=== PATIENT | female | born 1955 | race Caucasian/White ===

== ENCOUNTER 2023-10-12 16:05 | Inpatient (IN) ==
[2023-10-12 16:32] LABS: ABS Basophils 0.1 10^3/uL (0.0-0.1); ABS Lymphocytes 1.5 10^3/uL (1.0-4.8); ABS Neutrophils 9.5 10^3/uL (1.5-7.6); ABS Nucleated RBC 0.01 10^3/ul; Eosinophil % 0.3 %; Hematocrit 29.1 % (35-45); Hemoglobin 10.2 g/dL (11.5-14.3); Lymphocyte % 12.6 %; Mean Corpuscular Hemoglobin 30.2 pg (27-33); Mean Corpuscular Hgb Conc 34.9 g/dL (31-36); Mean Corpuscular Volume 86.5 fL (80-97); Mean Platelet Volume 8.5 fL (7.5-11.2); Platelet Count 200 10^3/uL (150-450); Red Blood Count 3.37 10^6/uL (3.63-4.92); Red Cell Distribution Width 16.4 % (12-17); White Blood Count 12.1 10^3/uL (3.8-11.8)
[2023-10-12 16:39] LABS: INR 1.25 (0.83-1.13)
[2023-10-12 17:17] LABS: Albumin 3.8 g/dL (3.2-5.2); Albumin/Globulin Ratio 1.5 (1-3); Calcium 6.9 mg/dL (8.6-10.3); Creatinine, Serum 2.27 mg/dL (0.51-0.95); Globulin 2.6 g/dL (2-4); Potassium 2.3 mmol/L (3.5-5.0); Total Bilirubin 0.8 mg/dL (0.2-1.0); Total Protein 6.4 g/dL (6.4-8.9); eGFR CKD-EPI 23.2 (>60)
[2023-10-12 17:55] LABS: High Sensitivity Troponin 1 Hr 15 pg/mL (<15)
[2023-10-12] MEDS: Lactated Ringers 1000 ml BAG 1,000 ML IV ONE (18:06)
[2023-10-12] MEDS: Potassium Chlor 20 meq TAB.ER PO ONE (18:06)
[2023-10-12 18:07] LABS: Magnesium 0.8 mg/dL (1.9-2.7)
[2023-10-12] MEDS: Magnesium Sulf 4 GM/100 ML IV 4,000 MG/100 ML BAG IVPB ONE (19:20)
[2023-10-12 21:54] LABS: TSH Ultra Thyroid Stim Horm 1.15 mcIU/mL (0.34-5.60)
[2023-10-12 22:00] LABS: Ferritin 84.2 ng/mL (11-307)
[2023-10-12] MEDS: Potassium Chlor 20 meq TAB.ER PO SCH (23:14)
[2023-10-13 02:04] LABS: Creatinine, Serum 1.94 mg/dL (0.51-0.95); Potassium 2.6 mmol/L (3.5-5.0); eGFR CKD-EPI 28.1 (>60)
[2023-10-13 06:10] LABS: ABS Lymphocytes 0.8 10^3/uL (1.0-4.8); ABS Monocytes 0.6 10^3/uL (0.0-0.9); ABS Neutrophils 6.8 10^3/uL (1.5-7.6); ABS Nucleated RBC 0.01 10^3/ul; Eosinophil % 0.2 %; Hematocrit 29.9 % (35-45); Hemoglobin 10.5 g/dL (11.5-14.3); Mean Corpuscular Hemoglobin 30.4 pg (27-33); Mean Corpuscular Hgb Conc 35.1 g/dL (31-36); Mean Corpuscular Volume 86.6 fL (80-97); Mean Platelet Volume 8.8 fL (7.5-11.2); Nucleated Red Blood Cells % 0.1 %/100WBC (0.0-0.8); Platelet Count 185 10^3/uL (150-450); Red Blood Count 3.46 10^6/uL (3.63-4.92); Red Cell Distribution Width 16.3 % (12-17); White Blood Count 8.3 10^3/uL (3.8-11.8)
[2023-10-13 06:32] LABS: Calcium 6.7 mg/dL (8.6-10.3); Creatinine, Serum 2.04 mg/dL (0.51-0.95); Magnesium 1.8 mg/dL (1.9-2.7); Potassium 2.7 mmol/L (3.5-5.0); eGFR CKD-EPI 26.4 (>60)
[2023-10-13] MEDS: Magnesium Sulfate 2 gm BAG 2 GM/50 ML BAG IVPB ONE (07:29)
[2023-10-13] MEDS ORDERED: Sulfur Hexaflouride MICROSPHR 25 MG VIAL ONE (09:41)
[2023-10-13] MEDS: Sulfur Hexaflouride MICROSPHR 25 MG VIAL IV ONE (09:48)
[2023-10-13 10:00] LABS: Calcium 7.3 mg/dL (8.6-10.3); Creatinine, Serum 1.91 mg/dL (0.51-0.95); Potassium 3.1 mmol/L (3.5-5.0); eGFR CKD-EPI 28.6 (>60)
[2023-10-13] MEDS: KCL 20 MEQ/100 ML IVPREMIX 20 MEQ/100 ML BAG IV SCH (18:10)
[2023-10-13] MEDS: Ferric Gluconate IV 125 MG in Premix IV 0 ML IV PUSH ONE (18:44)
[2023-10-13] MEDS: Ferric Gluconate IV 125 MG in NS 0.9% 100 ML IVPB ONE (23:01)
[2023-10-14 06:20] LABS: ABS Lymphocytes 0.8 10^3/uL (1.0-4.8); ABS Monocytes 0.5 10^3/uL (0.0-0.9); ABS Neutrophils 4.6 10^3/uL (1.5-7.6); Eosinophil % 0.4 %; Hematocrit 28.2 % (35-45); Hemoglobin 9.8 g/dL (11.5-14.3); Lymphocyte % 13.9 %; Mean Corpuscular Hemoglobin 30.5 pg (27-33); Mean Corpuscular Hgb Conc 34.8 g/dL (31-36); Mean Corpuscular Volume 87.9 fL (80-97); Mean Platelet Volume 8.6 fL (7.5-11.2); Nucleated Red Blood Cells % 0.1 %/100WBC (0.0-0.8); Platelet Count 180 10^3/uL (150-450); Red Blood Count 3.21 10^6/uL (3.63-4.92); Red Cell Distribution Width 17.1 % (12-17)
[2023-10-14 06:46] LABS: Calcium 7.5 mg/dL (8.6-10.3); Creatinine, Serum 1.52 mg/dL (0.51-0.95); Magnesium 1.9 mg/dL (1.9-2.7); Potassium 3.4 mmol/L (3.5-5.0); eGFR CKD-EPI 37.6 (>60)
[2023-10-14] MEDS ORDERED: Sulfur Hexaflouride MICROSPHR 25 MG VIAL ONE (08:11)
[2023-10-14] MEDS: Magnesium Sulfate IV 1GM/100ML 1 GM/100 ML BAG IV ONE (10:22)
[2023-10-14] MEDS: KCL 20 MEQ/100 ML IVPREMIX 20 MEQ/100 ML BAG IV SCH (10:22)
[2023-10-14] MEDS: Ferric Gluconate IV 250 MG in NS 0.9% 250 ml 200 ML IVPB SCH (15:25)
[2023-10-15 05:37] LABS: Calcium 8.7 mg/dL (8.6-10.3); Creatinine, Serum 1.28 mg/dL (0.51-0.95); Magnesium 1.9 mg/dL (1.9-2.7); Potassium 3.6 mmol/L (3.5-5.0); eGFR CKD-EPI 46.2 (>60)
[2023-10-15 05:52] LABS: ABS Lymphocytes 0.9 10^3/uL (1.0-4.8); ABS Monocytes 0.7 10^3/uL (0.0-0.9); ABS Neutrophils 5.8 10^3/uL (1.5-7.6); Eosinophil % 0.6 %; Hematocrit 28.9 % (35-45); Hemoglobin 9.8 g/dL (11.5-14.3); Lymphocyte % 11.5 %; Mean Corpuscular Hemoglobin 30.1 pg (27-33); Mean Corpuscular Hgb Conc 33.8 g/dL (31-36); Mean Corpuscular Volume 89.2 fL (80-97); Mean Platelet Volume 8.3 fL (7.5-11.2); Platelet Count 189 10^3/uL (150-450); Red Blood Count 3.24 10^6/uL (3.63-4.92); Red Cell Distribution Width 17.1 % (12-17); White Blood Count 7.4 10^3/uL (3.8-11.8)
[2023-10-15 14:27] VITALS: BP 104/55
== END 2023-10-15 14:40 | disposition home or self-care (01) | DRG 641 ==
LOC: ED 16:05 → EDHOLD 16:05 → SUATTDRO 19:34 → MEDTELE 20:54
PROVIDERS: ADMIT Student in an Organized Health Care Education/Training Program; ATTEND Internal Medicine